=== PATIENT | female | born 1970 | race Caucasian/White ===

== ENCOUNTER → 2019-11-13 08:01 | Outpatient (CLI) | payer BC, SELFPAY ==
--- NOTE | ~2019-11-13 | MM_ITS ---
EXAMINATION: MM screening [facility] BI w arjun HISTORY: Screening mammogram TECHNIQUE: Craniocaudal and mediolateral oblique 3-D tomosynthesis images were obtained and synthetic 2-D images were generated. CAD analysis was submitted and interpreted. COMPARISON: 03/14/2018, 05/30/2012 bilateral digital screening mammogram examinations BREAST PARENCHYMAL COMPOSITION: The breasts are heterogeneously dense, which may obscure small masses . FINDINGS: Stable mild fibroglandular asymmetry. There is no evidence of suspicious mass, calcificatio n, or architectural distortion to suggest malignancy in either breast. There has been no suspicious i nterval change. IMPRESSION: 1. No mammographic evidence of malignancy. 2. Recommend routine screening mammography in one year. BI-RADS Category 2: Benign finding(s). Reviewed, dictated and finalized at location A. MS ACCOUNT SPECIALIST
== END ==
PROVIDERS: PCP Family Medicine; Visit Provider Nurse Practitioner Obstetrics & Gynecology
DX: Z12.31 Encounter for screening mammogram for malignant neoplasm of breast (principal)
CPT/HCPCS: 77063; 77067

== ENCOUNTER → 2020-09-02 07:46 | Outpatient (CLI) | payer BC, SELFPAY ==
--- NOTE | ~2020-09-02 | US_ITS ---
EXAMINATION: US abdomen complete DATE: 09/02/2020 08:25 INDICATION: Generalized abdominal pain. TECHNIQUE: Multiple grayscale and Doppler ultrasound images of the abdomen were obtained. COMPARISON: None FINDINGS: The visualized portions of the head, body, and tail of the pancreas are normal. Abdominal a jerald is normal in caliber. Inferior vena cava is normal. The liver is normal without focal lesion. No liver surface nodularity. There is normal flow in main portal vein. The gallbladder is normal in siz e. No gallstones or gallbladder wall thickening. There was no sonographic Obando sign. The common checo t is normal and measures 4 mm. The spleen is normal in size. Right kidney measures 9.1 x 3.8 x 4.8 cm . Left kidney measures 10.4 x 6.3 x 5.5 cm. IMPRESSION: 1. Normal complete abdomen ultrasound. Reviewed, dictated and finalized at location A. PER
== END ==
PROVIDERS: PCP Physician Assistant; Visit Provider Physician Assistant
DX: R10.9 Unspecified abdominal pain (principal)
CPT/HCPCS: 76700

== ENCOUNTER → 2020-12-27 17:43 | Outpatient (CLI) | payer BC, SELFPAY ==
--- NOTE | ~2020-12-27 | MM_ITS ---
EXAMINATION: MM screening [facility] BI w arjun HISTORY: Screening TECHNIQUE: Craniocaudal and mediolateral oblique 3-D tomosynthesis images were obtained and synthetic 2-D images were generated. CAD analysis was submitted and interpreted. COMPARISON: Comparison to multiple prior studies sequentially, with oldest reviewed study dated 05/30. BREAST PARENCHYMAL COMPOSITION: There are scattered areas of fibroglandular density. FINDINGS: There is no evidence of suspicious mass, calcification, or architectural distortion to sugg est malignancy in either breast. There has been no suspicious interval change. IMPRESSION: 1. No mammographic evidence of malignancy. 2. Recommend routine screening mammography in one year. BI-RADS Category 1: Negative Reviewed, dictated and finalized at location A.
== END ==
PROVIDERS: PCP Physician Assistant; Visit Provider Physician Assistant
DX: Z12.31 Encounter for screening mammogram for malignant neoplasm of breast (principal)
CPT/HCPCS: 77063; 77067

== ENCOUNTER → 2021-09-24 10:17 | Outpatient (CLI) | payer BC, SELFPAY ==
--- NOTE | ~2021-09-24 | US_ITS ---
EXAMINATION: US pelvic complete w TV DATE: 09/24/2021 10:44 INDICATION: Enlarged uterus Comparison:No prior studies for comparison TECHNIQUE: Multiple transabdominal and endovaginal sonographic images of the pelvis performed. FINDINGS: The uterus measures 11.4 x 7.9 x 9.1 cm. There are multiple uterine fibroids, largest measu ring 6.3 x 7.7 x 5.7 cm. The endometrial complex measures 12 mm. The right ovary measures 2.7 x 0.9 x 2.3 cm and the left ovary measures 2.3 x 1.6 x 2.1 cm. There ar e small follicles in each ovary. Normal doppler signal in both ovaries. There is no free fluid in the pelvis. There are no abnormal masses seen on either side. IMPRESSION: 1. Enlarged fibroid uterus, largest discrete fibroid measures 7.7 cm. 2: Thickened endometrium measuring 12 mm. Reviewed, dictated and finalized at location A. BLOCKER
== END ==
PROVIDERS: PCP Physician Assistant; Visit Provider Physician Assistant
DX: N85.2 Hypertrophy of uterus (principal); D25.9 Leiomyoma of uterus, unspecified; R93.89 Abnormal findings on diagnostic imaging of other specified body structures
CPT/HCPCS: 76830; 76856

== ENCOUNTER 2021-12-28 00:17 | Day surgery (SDC) | payer BC, SELFPAY ==
[2021-12-14 14:06] VITALS: BMI 32.5
--- NOTE | 2021-12-27 12:41 | PM.HPGS ---
History of Present Illness History of Present Illness Consent: Risks, benefits, and alternatives have been discussed and questions answered. Patient agrees to proceed with procedure. Chief complaint: neoplasm screening Narrative: Azra Colon is a 51 year old female referred for colon cancer screening. Review of Systems Review of Systems: All systems reviewed & are unremarkable except as noted in HPI and below PMFSH Past Medical History Medical History No active medical problems Surgical History Surgical History No pertinent past surgical history Family History Family History Other Breast cancer Social History Social History Smoking status: Never smoker Second hand tobacco smoke exposure: No Alcohol intake: former Substance use: never Living arrangements: with family Spiritual care concerns: No Meds Home Medications and Allergies Home Medications Medication Instructions Recorded Confirmed Type cetirizine [Zyrtec] 10 mg PO DAILY 12/14/21 12/28/21 History cholecalciferol (vitamin D3) 50 mcg PO DAILY 12/14/21 12/28/21 History [Vitamin D3] famotidine 20 mg PO DAILY 12/14/21 12/28/21 History Allergies Allergy/AdvReac Type Severity Reaction Status Date / Time cephalexin Allergy Unknown Nausea Verified 12/28/21 10:35 divalproex sodium [Depakote] Allergy Unknown skin Verified 12/28/21 10:35 turned bright red Penicillins Allergy Unknown Skin Verified 12/28/21 10:35 Reaction prednisone Allergy Unknown skin Verified 12/28/21 10:35 turned bright red Sulfa (Sulfonamide Allergy Unknown Skin Verified 12/28/21 10:35 Antibiotics) Reaction Exam Resp: Auscultation: clear to auscultation bilaterally Cardio: Rate: regular rate Rhythm: regular rhythm GI: GI Palp: Yes Soft to palpation and No Tenderness to palpation present (GI) Assessment and Plan Assessment and plan (1) Colon cancer screening: Code(s): Z12.11 - Encounter for screening for malignant neoplasm of colon Status: Acute Assessment and Plan: Colonoscopy with possible biopsy or polypectomy or cautery or injection of substances.
--- NOTE | 2021-12-28 10:02 | P.PNAN_ITS ---
Anes - Initial Pre Proc Eval Procedure: Operation Date: 12/28/21 11:30 Proposed Procedures p Screening Colonoscopy - Darren Fischer MD Date/Time: 12/28/21 10:02 Surgeon: Darren Fischer MD Pre Op Diagnosis: neoplasm screening Patient Data Age: 51 Gender: F Height: 1.63 m Weight: 86 kg Allergies Allergy/AdvReac Type Severity Reaction Status Date / Time cephalexin Allergy Unknown Nausea Verified 12/28/21 10:35 divalproex sodium [Depakote] Allergy Unknown skin Verified 12/28/21 10:35 turned bright red Penicillins Allergy Unknown Skin Verified 12/28/21 10:35 Reaction prednisone Allergy Unknown skin Verified 12/28/21 10:35 turned bright red Sulfa (Sulfonamide Allergy Unknown Skin Verified 12/28/21 10:35 Antibiotics) Reaction Home Medications Medication Instructions Recorded Confirmed Type cetirizine [Zyrtec] 10 mg PO DAILY 12/14/21 12/14/21 History cholecalciferol (vitamin D3) 50 mcg PO DAILY 12/14/21 12/14/21 History [Vitamin D3] famotidine 20 mg PO DAILY 12/14/21 12/14/21 History Patient hx anesthesia problems: none Family hx anesthesia problems: none Results Review: All pre-operative results and documents have been reviewed as part of the pre-operative evaluation. [facility] Past Medical History Medical History (Updated 12/27/21 @ 12:42 by Darren Fischer MD) No active medical problems Surgical History Surgical History No pertinent past surgical history Family History Family History Other Breast cancer Social History Social History (Updated 10/25/19 @ 16:48 by Patience Jordan PA-C) Smoking status: Never smoker Second hand tobacco smoke exposure: No Alcohol intake: former Substance use: never Living arrangements: with family Spiritual care concerns: No Anes - Eval Final PreProcedure Day of Procedure 12/28/21 10:02 Patient weight: obese Heart: regular rate and rhythm Lungs: clear to auscultation and normal air movement Airway: Mallampati scale class II Neurological: alert and oriented Last oral intake: >/= 8 hours ASA classification: II Emergent: no Anesthetic plan: proceed Anesthesia type and monitoring: general GIVS and standard monitoring Results Review: All pre-operative results and documents have been reviewed as part of the pre-operative evaluation. Informed Consent: The patient's anesthetic plan and its attendant risks and benefits were discussed with the patient/family/POA. Questions were solicited and answers provided to the satisfaction of the patient/family/POA.
[2021-12-28 10:37] VITALS: BP 127/84; PULSE 112; RESP 20; TEMP 36.2; O2SAT 99; BMI 31.1
[2021-12-28] MEDS: LACTATED RINGERS 1,000 ML 150 ML IV CONT (10:39)
[2021-12-28 11:39] VITALS: BP 103/61; PULSE 90; RESP 16; O2SAT 99
[2021-12-28 11:49] VITALS: BP 128/80; PULSE 96; RESP 18; O2SAT 99
[2021-12-28 11:59] VITALS: BP 122/85; PULSE 90; RESP 20; O2SAT 99
== END 2021-12-28 12:07 | disposition home or self-care (01) ==
PROVIDERS: PCP Physician Assistant; Visit Provider Internal Medicine Gastroenterology
PROC: 0DJD8ZZ Inspection of Lower Intestinal Tract, Via Natural or Artificial Opening Endoscopic (ICD-10-PCS; CPT 45378; principal; 2021-12-28 11:30)
DX: Z12.11 Encounter for screening for malignant neoplasm of colon (principal); K64.8 Other hemorrhoids; K62.89 Other specified diseases of anus and rectum; E66.9 Obesity, unspecified; Z68.31 Body mass index [BMI] 31.0-31.9, adult
CPT/HCPCS: 45378; J2704; J7120

== ENCOUNTER → 2022-03-02 07:53 | Outpatient (CLI) | payer BC, SELFPAY ==
--- NOTE | ~2022-03-02 | MM_ITS ---
EXAMINATION: MM screening [facility] BI w arjun HISTORY: Screening mammogram TECHNIQUE: Craniocaudal and mediolateral oblique 3-D tomosynthesis images were obtained and synthetic 2-D images were generated. CAD analysis was submitted and interpreted. COMPARISON: 12/23/2020, 11/13/2019, 03/24/2018 bilateral screening mammogram examinations BREAST PARENCHYMAL COMPOSITION: There are scattered areas of fibroglandular density. FINDINGS: There is no evidence of suspicious mass, calcification, or architectural distortion to sugg est malignancy in either breast. There has been no suspicious interval change. IMPRESSION: 1. No mammographic evidence of malignancy. 2. Recommend routine screening mammography in one year. BI-RADS Category 1: Negative Reviewed, dictated and finalized at location A.
== END ==
PROVIDERS: PCP Physician Assistant; Visit Provider Physician Assistant
DX: Z12.31 Encounter for screening mammogram for malignant neoplasm of breast (principal)
CPT/HCPCS: 77063; 77067

== ENCOUNTER → 2022-09-03 16:51 | Outpatient (CLI) | payer BC, SELFPAY ==
--- NOTE | ~2022-09-03 | XR_ITS ---
EXAM: XR elbow LT min 3V DATE: 09/03/2022 17:12 HISTORY: Left Elbow Pain . COMPARISON: None available. FINDINGS: Normal mineralization. No fracture or dislocation. No lytic or blastic lesion. Joint space s are maintained. No erosion or periosteal change. Soft tissues within normal limits. IMPRESSION: Normal left elbow radiograph findings. Reviewed, dictated and finalized at location K. LE ASSEMBLER
== END ==
PROVIDERS: PCP Physician Assistant; Visit Provider Physician Assistant
DX: M25.522 Pain in left elbow (principal)
CPT/HCPCS: 73080

== ENCOUNTER → 2022-12-14 09:55 | Outpatient (CLI) | payer BC, SELFPAY ==
--- NOTE | ~2022-12-14 | US_ITS ---
Pelvic ultrasound. Clinical History: Enlarged uterus Technique: Realtime transabdominal and transvaginal scanning of the pelvis was performed. Color flow Doppler and Doppler spectral analysis were performed. Findings: The uterus is anteverted, and measures 14.5 x 7.4 x 11.5 cm in overall extent. The endomet rial stripe has a thickness of 7 mm. Right-sided partially exophytic fibroid measures 5.0 cm in maxim um diameter. Central to left-sided fibroid measures 5.8 cm in maximum diameter. Additional left-sided fibroid measures 5.2 cm in diameter.. The right ovary measures 2.1 x 3.1 x 1.4 cm. No significant right ovarian or adnexal mass is seen. The left ovary measures 2.4 x 2.7 x 1.6 cm. No significant left ovarian or adnexal mass is seen. There is no evidence of free fluid in the cul de sac. Impression: Enlarged, multi fibroid uterus, as detailed above. Reviewed, dictated and finalized at location . ENT FORM ASSEMBLER Impression: Enlarged, multi fibroid uterus, as detailed above.
== END ==
PROVIDERS: PCP Physician Assistant; Visit Provider Physician Assistant
DX: N85.2 Hypertrophy of uterus (principal); D25.9 Leiomyoma of uterus, unspecified
CPT/HCPCS: 76830; 76856